=== PATIENT | female | born 1955 | race Caucasian/White ===

== ENCOUNTER 2021-12-22 12:36 | Emergency (ER) | payer MEDICARE, SELFPAY ==
[2021-12-22 13:39] VITALS: BP 159/81; PULSE 86
[2021-12-22] MEDS ORDERED: Diphtheria,Pertussis(Acell),Tetanus Vaccine 0.5 ML SDV IM ONE ×2 (13:44→13:48)
[2021-12-22] MEDS ORDERED: Diphtheria/Tetanus Toxoids,Adult (Td) 0.5 ML SDV IM ONE (13:45)
== END 2021-12-22 14:10 | disposition home or self-care (01) ==
LOC: LB.ED 12:36
DX: S61.412A Laceration without foreign body of left hand, initial encounter (principal); Z88.0 Allergy status to penicillin; Z88.2 Allergy status to sulfonamides; Z79.899 Other long term (current) drug therapy; Z23 Encounter for immunization; W26.8XXA Contact with other sharp object(s), not elsewhere classified, initial encounter
CPT/HCPCS: 12002; 90471; 90715; 99282-25

== ENCOUNTER 2023-05-10 17:17 | Inpatient (IN) | payer MEDICARE ==
[2023-05-10] MEDS ORDERED: Sodium Chloride 0.9% 1,000 ML IV ONE (17:38)
[2023-05-10] MEDS ORDERED: Ondansetron 4 MG/2 ML SDV IVPUSH ONE (17:38)
[2023-05-10 17:54] LABS: BASOPHILS ABSOLUTE AUTO 0.02 K/uL (0.02-0.10); BASOPHILS PERCENT AUTO 0.3 % (0.0-0.5); EOSINOPHILS ABSOLUTE AUTO 0.02 K/uL (0.04-0.40); EOSINOPHILS PERCENT AUTO 0.3 % (1.0-5.0); HEMOGLOBIN 14.9 g/dL (11.5-16.5); LYMPHOCYTES ABSOLUTE AUTO 1.52 K/uL (1.50-4.00); MEAN CORPUSCULAR HEMOGLOBIN 32.3 pg (27.0-32.0); MEAN CORPUSCULAR HGB CONC 34.7 g/dL (31.0-35.0); MEAN CORPUSCULAR VOLUME 93 fL (76-96); MEAN PLATELET VOLUME 10.6 fL (6.0-10.0); MONOCYTES ABSOLUTE AUTO 0.43 K/uL (0.20-0.80); MONOCYTES PERCENT AUTO 7.1 % (3.0-10.0); NEUTROPHILS PERCENT AUTO 67.3 % (45.0-70.0); PLATELET COUNT,PLT 195 K/uL (150-500); RED BLOOD CELL COUNT 4.61 M/uL (3.80-5.80); RED CELL DISTRIBUTION WIDTH 12.4 % (11.0-16.0); WHITE BLOOD CELL COUNT,WBC 6.1 K/uL (4.0-11.0)
[2023-05-10 18:09] LABS: PTT,PARTIAL THROMBOPLSTIN TIME 27.4 SECONDS (24.4-33.2)
[2023-05-10 18:10] LABS: PROTHROMBIN TIME 10.6 sec (9.0-11.5)
[2023-05-10 18:12] LABS: ALANINE AMINOTRANSFERASE,ALT 25 U/L (12-78); ALBUMIN 3.7 g/dL (3.4-5.0); ALKALINE PHOSPHATASE 75 U/L (46-116); ANION GAP 12.7 mmol/L (5.0-15.0); ASPARTATE AMNIOTRANSFERASE,AST 18 U/L (15-37); BILIRUBIN TOTAL 0.4 mg/dL (0.0-1.0); BLOOD UREA NITROGEN,BUN 13 mg/dL (8-26); BUN/CREATININE RATIO 16.3 (6-25); CALCIUM 8.9 mg/dL (8.5-10.1); CARBON DIOXIDE,CO2 28.2 mmol/L (21.0-32.0); CHLORIDE,CL 101 mmol/L (98-107); ESTIMATED GFR 81 mL/min (>60); GLUCOSE RANDOM 137 mg/dL (74-100); LIPASE 22 U/L (16-77); PROTEIN TOTAL,TP 7.3 g/dL (6.4-8.2); SODIUM,NA 139 mmol/L (136-145)
[2023-05-10 18:14] LABS: POTASSIUM,K 2.9 mmol/L (3.5-5.1); TROPONIN I HIGH SENSITIVITY < 4.0 pg/ml (<=60.4)
[2023-05-10] MEDS ORDERED: Magnesium Sulfate/Water 2 GM in Premix Bag 1 BAG IV ONE (18:19)
[2023-05-10 18:31] LABS: APPEARANCE,URINE CLEAR (CLEAR); BILIRUBIN,URINE NEGATIVE (NEGATIVE); COLOR,URINE YELLOW; GLUCOSE,URINE NEGATIVE (NEGATIVE); KETONES,URINE 80 mg/dL (NEGATIVE); LEUKOCYTE ESTERASE,URINE NEGATIVE (NEGATIVE); NITRITE,URINE NEGATIVE (NEGATIVE); OCCULT BLOOD,URINE NEGATIVE (NEGATIVE); PROTEIN,URINE NEGATIVE (NEGATIVE)
[2023-05-10] MEDS ORDERED: Metoclopramide 10 MG/2 ML SDV IVPUSH ONE (19:00)
[2023-05-10] MEDS ORDERED: Sodium Chloride 0.9% 50 ML SDV FLUSH ONE (19:32)
[2023-05-10] MEDS ORDERED: Iopamidol 612 MG/ML 100 ML Bottle IV SCH (19:45)
[2023-05-10] MEDS ORDERED: Prochlorperazine 10 MG in Sodium Chloride 0.9% 50 ML IV ONE (20:40)
[2023-05-10] MEDS ORDERED: OLANZapine 5 MG Tab PO ONE (20:40)
[2023-05-10] MEDS ORDERED: Prochlorperazine 10 MG/2 ML SDV ONE (20:59)
[2023-05-10] MEDS ORDERED: Potassium Chloride 10% 20 MEQ/15 ML Soln 15 ML UD Cup ONE (21:07)
[2023-05-10] MEDS: Potassium Chloride 10% 20 MEQ/15 ML Soln 15 ML UD Cup PO ONE (21:14)
[2023-05-10] MEDS ORDERED: traMADol 50 MG Tab PO ONE (22:12)
[2023-05-10] MEDS ORDERED: diphenhydrAMINE 50 MG/ML SDV IVPUSH PRN (22:14)
[2023-05-10] MEDS ORDERED: Atenolol 25 MG Tab PO ONE (22:21)
[2023-05-10] MEDS ORDERED: Sodium Chloride 0.9% 1,000 ML IV SCH (22:30)
[2023-05-10] MEDS ORDERED: D5 1/2 NS w/ 40 mEq/L KCl 1,000 ML IV SCH ×2 (23:00→23:30)
[2023-05-10] MEDS ORDERED: D5%-0.9% NaCl w/ KCl 40 meq 1,000 ML IV SCH (23:00)
[2023-05-10] MEDS ORDERED: Gabapentin 600 MG Tab ONE (23:06)
[2023-05-10] MEDS: Gabapentin 600 MG Tab PO SCH (23:12)
[2023-05-10] MEDS: Ondansetron 4 MG/2 ML SDV IVPUSH PRN (23:24)
[2023-05-11] MEDS: Potassium Chloride 10% 20 MEQ/15 ML Soln 15 ML UD Cup PO ONE (00:39)
[2023-05-11] MEDS ORDERED: Sodium Chloride 0.9% 10 ML Syringe FLUSH PRN (00:55)
[2023-05-11] MEDS: Ondansetron 4 MG/2 ML SDV IVPUSH PRN ×2 (09:26→23:43)
[2023-05-11] MEDS ORDERED: diazePAM 5 MG/ML MDV ONE (10:45)
[2023-05-11] MEDS ORDERED: Ondansetron 4 MG/2 ML SDV IVPUSH ONE (12:58)
[2023-05-11] MEDS ORDERED: Ibuprofen 800 MG Tab PO ONE (13:29)
[2023-05-11] MEDS ORDERED: Ibuprofen 800 MG Tab ONE (13:31)
[2023-05-11] MEDS ORDERED: Acetaminophen 325 MG Tab PO ONE (15:17)
[2023-05-11] MEDS ORDERED: Ondansetron 4 MG/2 ML SDV IVPUSH PRN (17:19)
[2023-05-11] MEDS ORDERED: diphenhydrAMINE 50 MG/ML SDV IVPUSH PRN (17:19)
[2023-05-11] MEDS ORDERED: Metoclopramide 10 MG/2 ML SDV IV PRN (17:19)
[2023-05-11] MEDS ORDERED: Acetaminophen 325 MG Tab PO PRN (17:19)
[2023-05-11] MEDS ORDERED: predniSONE 20 MG Tab PO ONE (17:28)
[2023-05-11] MEDS ORDERED: Atenolol 25 MG Tab PO ONE (17:30)
[2023-05-11] MEDS: Prochlorperazine 10 MG/2 ML SDV IVPUSH PRN (18:11)
[2023-05-11] MEDS: Gabapentin 600 MG Tab PO SCH (19:32)
[2023-05-11] MEDS ORDERED: Sucralfate 1 GM Tab PO SCH (20:00)
[2023-05-11] MEDS ORDERED: Gabapentin 600 MG Tab PO SCH (20:00)
[2023-05-11] MEDS ORDERED: Naproxen 500 MG Tab PO SCH (20:00)
[2023-05-12] MEDS: Levothyroxine 88 MCG Tab PO SCH (07:29)
[2023-05-12] MEDS: predniSONE 20 MG Tab PO SCH (07:29)
[2023-05-12] MEDS: Ondansetron 4 MG/2 ML SDV IVPUSH PRN (07:29)
[2023-05-12] MEDS: Hydrochlorothiazide/Triamterene 25-37.5 MG Cap PO SCH (07:30)
[2023-05-12] MEDS: Sucralfate 1 GM Tab PO SCH (07:30)
[2023-05-12 08:22] LABS: BASOPHILS ABSOLUTE AUTO 0.02 K/uL (0.02-0.10); BASOPHILS PERCENT AUTO 0.3 % (0.0-0.5); HEMATOCRIT 42.8 % (37.0-47.0); HEMOGLOBIN 14.4 g/dL (11.5-16.5); LYMPHOCYTES ABSOLUTE AUTO 0.86 K/uL (1.50-4.00); LYMPHOCYTES PERCENT AUTO 10.9 % (20.0-40.0); MEAN CORPUSCULAR HEMOGLOBIN 31.9 pg (27.0-32.0); MEAN CORPUSCULAR HGB CONC 33.6 g/dL (31.0-35.0); MEAN CORPUSCULAR VOLUME 95 fL (76-96); MEAN PLATELET VOLUME 10.5 fL (6.0-10.0); MONOCYTES ABSOLUTE AUTO 0.47 K/uL (0.20-0.80); MONOCYTES PERCENT AUTO 5.9 % (3.0-10.0); NEUTROPHILS ABSOLUTE AUTO 6.55 K/uL (2.00-7.50); NEUTROPHILS PERCENT AUTO 82.9 % (45.0-70.0); PLATELET COUNT,PLT 223 K/uL (150-500); RED BLOOD CELL COUNT 4.51 M/uL (3.80-5.80); RED CELL DISTRIBUTION WIDTH 13.3 % (11.0-16.0); WHITE BLOOD CELL COUNT,WBC 7.9 K/uL (4.0-11.0)
[2023-05-12 08:30] LABS: ANION GAP 16.4 mmol/L (5.0-15.0); BUN/CREATININE RATIO 12.5 (6-25); CALCIUM 8.7 mg/dL (8.5-10.1); CARBON DIOXIDE,CO2 27.3 mmol/L (21.0-32.0); CREATININE 0.64 mg/dL (0.55-1.02); EST CRCL DRUG DOSING (CG) 73.66 mL/min; POTASSIUM,K 3.7 mmol/L (3.5-5.1)
[2023-05-12] MEDS: Prochlorperazine 10 MG/2 ML SDV IVPUSH PRN (08:47)
[2023-05-12] MEDS ORDERED: Dextrose 5%-0.45% NaCl 500 ML IV SCH (09:30)
[2023-05-12] MEDS: traMADol 50 MG Tab PO PRN ×2 (09:54→18:30)
[2023-05-12] MEDS: IMIPRAMINE 25 MG PO SCH ×2 (12:06→19:37)
[2023-05-12] MEDS: Atenolol 25 MG Tab PO SCH (12:28)
[2023-05-12] MEDS ORDERED: Ibuprofen 600 MG Tab PO PRN (14:36)
[2023-05-12] MEDS ORDERED: Prochlorperazine 10 MG Tab PO PRN (16:23)
[2023-05-12] MEDS ORDERED: Ondansetron 4 MG Tab.DIS PO PRN (16:23)
[2023-05-12] MEDS ORDERED: Metoclopramide 10 MG Tab PO PRN (16:26)
[2023-05-12] MEDS: Gabapentin 600 MG Tab PO SCH (19:25)
[2023-05-13] MEDS: Levothyroxine 88 MCG Tab PO SCH (08:08)
[2023-05-13] MEDS: predniSONE 20 MG Tab PO SCH (08:10)
[2023-05-13] MEDS: Hydrochlorothiazide/Triamterene 25-37.5 MG Cap PO SCH (08:11)
[2023-05-13] MEDS: Sucralfate 1 GM Tab PO SCH (08:11)
[2023-05-13] MEDS: Atenolol 25 MG Tab PO SCH (08:11)
[2023-05-13] MEDS: IMIPRAMINE 25 MG PO SCH (08:12)
[2023-05-13 08:13] VITALS: BP 134/65; PULSE 86
[2023-05-13 10:22] LABS: HEMATOCRIT 44.4 % (37.0-47.0); HEMOGLOBIN 15.2 g/dL (11.5-16.5); MEAN CORPUSCULAR HEMOGLOBIN 32.3 pg (27.0-32.0); MEAN CORPUSCULAR HGB CONC 34.2 g/dL (31.0-35.0); MEAN PLATELET VOLUME 10.1 fL (6.0-10.0); RED BLOOD CELL COUNT 4.7 M/uL (3.80-5.80); RED CELL DISTRIBUTION WIDTH 13.1 % (11.0-16.0); WHITE BLOOD CELL COUNT,WBC 9.8 K/uL (4.0-11.0)
[2023-05-13] MEDS ORDERED: Calcium Carbonate 500 MG Tab.Chew PO ONE (10:36)
[2023-05-13 10:37] LABS: ANION GAP 6.6 mmol/L (5.0-15.0); BUN/CREATININE RATIO 16.9 (6-25); CALCIUM 8.8 mg/dL (8.5-10.1); CARBON DIOXIDE,CO2 25.6 mmol/L (21.0-32.0); CREATININE 0.83 mg/dL (0.55-1.02); EST CRCL DRUG DOSING (CG) 56.8 mL/min; POTASSIUM,K 3.2 mmol/L (3.5-5.1)
[2023-05-13] MEDS ORDERED: Calcium Carbonate 500 MG Tab.Chew ONE (10:38)
[2023-05-13] MEDS ORDERED: Metoclopramide 10 MG Tab ONE (12:00)
[2023-05-13] MEDS ORDERED: Ondansetron 4 MG Tab.DIS ONE (12:00)
== END 2023-05-13 12:56 | disposition home or self-care (01) | DRG 156 ==
LOC: LB.ED 17:17 → LB.MS 05-11 16:44 → UNDOADMIN 05-11 16:44 → LB.MS 05-11 17:13 → UNDODISIN 05-13 12:56
PROVIDERS: ADMIT Physician Assistant; ATTEND Physician Assistant
DX: H93.3X3 Disorders of bilateral acoustic nerves (principal); M79.2 Neuralgia and neuritis, unspecified; H81.23 Vestibular neuronitis, bilateral; Z79.899 Other long term (current) drug therapy; G89.29 Other chronic pain; F41.9 Anxiety disorder, unspecified; I10 Essential (primary) hypertension; D89.89 Other specified disorders involving the immune mechanism, not elsewhere classified; R11.0 Nausea; H55.09 Other forms of nystagmus; E03.9 Hypothyroidism, unspecified; G62.9 Polyneuropathy, unspecified; M06.9 Rheumatoid arthritis, unspecified; M79.7 Fibromyalgia; E66.9 Obesity, unspecified; E87.6 Hypokalemia; H81.10 Benign paroxysmal vertigo, unspecified ear; Z88.0 Allergy status to penicillin; Z88.2 Allergy status to sulfonamides; Z98.1 Arthrodesis status; Z68.29 Body mass index [BMI] 29.0-29.9, adult
CPT/HCPCS: 36415; 70470; 70491; 70544; 70549; 70553; 71250; 74176; 80048; 80053; 81003; 83605; 83615; 83690; 84484; 85025; 85027; 85610; 85730; 93005; 93010; 96361; 96365; 96366; 96367; 96375; 96376; 99221; 99231; 99239; 99285-25; A0425; A0429; A9270-GY; J0780; J1200; J2405; J2765; J3360; J3475; J3480; J3490; J7030; J7512; Q0162; Q9967

== ENCOUNTER 2024-09-17 11:10 | Emergency (ER) | payer MEDICARE ==
[2024-09-17 11:55] LABS: HEMATOCRIT 41.6 % (37.0-47.0); HEMOGLOBIN 13.6 g/dL (11.5-16.5); MEAN CORPUSCULAR HEMOGLOBIN 31.1 pg (27.0-32.0); MEAN CORPUSCULAR HGB CONC 32.7 g/dL (31.0-35.0); MEAN PLATELET VOLUME 9.3 fL (6.0-10.0); RED BLOOD CELL COUNT 4.37 M/uL (3.80-5.80); RED CELL DISTRIBUTION WIDTH 13.8 % (11.0-16.0); WHITE BLOOD CELL COUNT,WBC 5.7 K/uL (4.0-11.0)
[2024-09-17 12:14] LABS: ANION GAP 12.1 mmol/L (5.0-15.0); BUN/CREATININE RATIO 14.3 (6-25); CALCIUM 8.8 mg/dL (8.5-10.1); CARBON DIOXIDE,CO2 26.8 mmol/L (21.0-32.0); CREATININE 0.91 mg/dL (0.55-1.02); EST CRCL DRUG DOSING (CG) 41.91 mL/min; POTASSIUM,K 3.9 mmol/L (3.5-5.1)
[2024-09-17] MEDS ORDERED: Apixaban 5 MG Tab PO ONE (12:43)
[2024-09-17 18:30] VITALS: BP 120/52; PULSE 85
== END 2024-09-17 13:10 | disposition home or self-care (01) ==
LOC: LB.ED 11:10
DX: I82.431 Acute embolism and thrombosis of right popliteal vein (principal); R79.89 Other specified abnormal findings of blood chemistry; I10 Essential (primary) hypertension; K21.9 Gastro-esophageal reflux disease without esophagitis; E03.9 Hypothyroidism, unspecified; E66.9 Obesity, unspecified; Z68.35 Body mass index [BMI] 35.0-35.9, adult; Z90.49 Acquired absence of other specified parts of digestive tract; Z90.710 Acquired absence of both cervix and uterus; Z79.899 Other long term (current) drug therapy; Z88.0 Allergy status to penicillin; Z88.2 Allergy status to sulfonamides
CPT/HCPCS: 36415; 80048; 85027; 85379; 99283; 99284